=== PATIENT | male | born 1970 | race Caucasian/White ===

== ENCOUNTER 2020-05-26 12:34 | Emergency (ER) | payer OTHER ==
[2020-05-26] MEDS ORDERED: IBUPROFEN800 MG PO (14:38)
[2020-05-26] MEDS ORDERED: CYCLOBENZAPRINE10 MG PO (14:38)
== END 2020-05-26 14:56 | disposition home or self-care (01) ==
LOC: FER 12:34
DX: S16.1XXA Strain of muscle, fascia and tendon at neck level, initial encounter (principal); S29.012A Strain of muscle and tendon of back wall of thorax, initial encounter; F17.210 Nicotine dependence, cigarettes, uncomplicated; X58.XXXA Exposure to other specified factors, initial encounter; Y92.009 Unspecified place in unspecified non-institutional (private) residence as the place of occurrence of the external cause
CPT/HCPCS: 99283; J1885

== ENCOUNTER 2020-11-15 03:13 | Emergency (ER) | payer OTHER ==
[~2020-11-15 03:13] MED LIST: CYCLOBENZAPRINE10 MG PO; IBUPROFEN800 MG PO
== END 2020-11-15 05:06 | disposition home or self-care (01) ==
LOC: FER 03:13
DX: U07.1 COVID-19 (principal)
CPT/HCPCS: 99283

== ENCOUNTER 2021-02-08 12:52 | Emergency (ER) | payer OTHER ==
[2021-02-08 13:16] LABS: BASOPHIL 0.9 % (0-2); EOSINOPHIL 2.3 % (0-5); HCT 50.6 % (42.0-52.0); LYMPHOCYTE 21.5 % (15-48); MCH 30.4 pg (25.0-31.0); MCHC 33.6 g/dL (32.0-36.0); MCV 90.5 fL (78.0-100.0); MONOCYTE 6.4 % (0-12); NEUTROPHIL 68.1 % (41-80); NRBC 0; PLT 301 K/uL (150-400); RBC 5.59 M/uL (4.70-6.00); RDW 12.9 % (11.5-14.0); WBC 12.7 K/uL (4.0-10.5)
[2021-02-08 13:36] LABS: ALBUMIN 3.7 g/dL (3.4-5.0); BILIRUBIN - TOTAL 0.4 mg/dL (0.2-1.0); BUN/CREAT RATIO (CALC) 10.9 RATIO; CREATININE 1.01 mg/dL (0.67-1.17); GLOBULIN (CALCULATION) 3.9 g/dL; LACTIC ACID 1.1 mmol/L (0.4-1.9); POTASSIUM 3.8 mmol/L (3.5-5.1); TOTAL PROTEIN 7.6 g/dL (6.4-8.2)
[2021-02-08 14:26] LABS: CORONAVIRUS 2019 SARS-COV-2 NEGATIVE (NEGATIVE); INFLUENZA A NAA NEGATIVE (NEGATIVE)
[2021-02-08] MEDS ORDERED: AZITHROMYCIN250 MG PO (14:39)
[2021-02-08] MEDS ORDERED: PREDNISONE 20MG20 MG PO (14:39)
== END 2021-02-08 14:55 | disposition home or self-care (01) ==
LOC: FER 12:52
PROVIDERS: Emergency Medicine
DX: J44.1 Chronic obstructive pulmonary disease with (acute) exacerbation (principal); F17.210 Nicotine dependence, cigarettes, uncomplicated; Z20.822 Contact with and (suspected) exposure to COVID-19
CPT/HCPCS: 36415; 36600; 71045; 80053; 82553; 82803; 83605; 84484; 85025; J2930; U0002

== ENCOUNTER 2021-10-26 05:53 | Emergency (ER) | payer OTHER ==
[~2021-10-26] VITALS: Ht 167.6 cm; Wt 100.0 kg
[~2021-10-26 05:53] MED LIST changes: +AZITHROMYCIN250 MG PO; +PREDNISONE 20MG20 MG PO
[2021-10-26 06:22] LABS: EOSINOPHIL 2.3 % (0-5); HCT 49.7 % (42.0-52.0); HGB 16.9 g/dl (13.2-18.0); MCH 30.5 pg (25.0-31.0); MCV 89.7 fL (78.0-100.0); MONOCYTE 9.8 % (0-12); MPV 10.6 fL (6.0-9.5); NEUTROPHIL 55.4 % (41-80); NRBC 0; PLT 223 K/uL (150-400); RBC 5.54 M/uL (4.70-6.00); RDW 12.4 % (11.5-14.0); WBC 9.8 K/uL (4.0-10.5)
[2021-10-26 06:41] LABS: INR 0.96 (0.9-1.2); PROTHROMBIN TIME 12.5 SECONDS (11.9-13.9); PTT 25.6 SECONDS (24.9-34.6)
[2021-10-26 07:04] LABS: ALBUMIN 3.5 g/dL (3.4-5.0); BILIRUBIN - TOTAL 0.3 mg/dL (0.2-1.0); BUN/CREAT RATIO (CALC) 13.4 RATIO; CREATININE 1.12 mg/dL (0.67-1.17); GLOBULIN (CALCULATION) 2.8 g/dL; POTASSIUM 3.9 mmol/L (3.5-5.1); TOTAL PROTEIN 6.3 g/dL (6.4-8.2)
[2021-10-26 07:07] LABS: CORONAVIRUS 2019 SARS-COV-2 NEGATIVE (NEGATIVE); INFLUENZA A NAA NEGATIVE (NEGATIVE)
== END 2021-10-26 12:36 | disposition other institution (70) ==
LOC: FER 05:53
PROVIDERS: Internal Medicine
DX: I25.110 Atherosclerotic heart disease of native coronary artery with unstable angina pectoris (principal); I25.2 Old myocardial infarction; J44.9 Chronic obstructive pulmonary disease, unspecified; F17.210 Nicotine dependence, cigarettes, uncomplicated; Z20.822 Contact with and (suspected) exposure to COVID-19; Z95.5 Presence of coronary angioplasty implant and graft
CPT/HCPCS: 36415; 71045; 80053; 83690; 83880; 84145; 84484; 85025; 85610; 85730; 93005; J1644; J2405; U0002